=== PATIENT | female | born 1990 | race African-American/Black ===

== ENCOUNTER 2019-12-02 22:10 | Inpatient (IN) | payer MEDICAID ==
[~2019-12-02] VITALS: Ht 152.4 cm; Wt 117.5 kg
[~2019-12-02 22:10] MED LIST: advil; midol
[2019-12-02] MEDS ORDERED: METHYLERGONOVINE MALEATE 0.2 MG/ML IM PRN (23:30)
[2019-12-02] MEDS ORDERED: BUTORPHANOL TARTRATE 2 MG/ML VIAL IV PRN (23:30)
[2019-12-02] MEDS ORDERED: CARBOPROST TROMETHAMINE 250 MCG/ML AMPUL IM PRN (23:30)
[2019-12-02] MEDS ORDERED: LIDOCAINE HCL 1% 20ML VIAL (Pyxis) INJ INFIL SCH (23:30)
[2019-12-02] MEDS ORDERED: MISOPROSTOL 100MCG TABLET VG SCH (23:30)
[2019-12-02] MEDS ORDERED: NALOXONE HCL 0.4 MG/ML 1ML VIAL IM PRN (23:30)
[2019-12-03] MEDS ORDERED: AMPICILLIN 2,000 MG in SODIUM CHLORIDE 0.9% 100 ML IV SCH ×2
[2019-12-03 00:51] LABS: BASOPHILS % 0.4 % (0.0-2.0); EOSINOPHILS % 1.7 % (0.0-5.0); HEMATOCRIT. 35.1 % (36.0-48.0); HEMOGLOBIN. 12.2 g/dL (12.0-16.0); MEAN CORPUSCULAR HEMOGLOBIN 31.3 pg (28.0-32.0); MEAN CORPUSCULAR VOLUME 90.3 fL (81.0-99.0); MEAN PLATELET VOLUME 8.5 fl (7.4-10.4); MONOCYTES % 8.3 % (2.0-8.0); NEUTROPHILS % 66.6 % (40.0-76.0); PLATELET 270 x1000/uL (130-400); RED BLOOD CELL COUNT 3.89 mill/uL (4.2-5.4)
[2019-12-03 01:11] LABS: HEPATITIS B SURFACE ANTIGEN NEGATIVE
[2019-12-03] MEDS: DEXT 5%/LR + PITOCIN 20UNITS/L 1,000 ML IV SCH (01:15)
[2019-12-03 02:22] LABS: PARTIAL THROMBOPLASTIN TIME 30.7 sec (23.4-31.0); PROTHROMBIN TIME 10.1 sec (9.6-11.0)
[2019-12-03 02:23] LABS: CLARITY URINE CLEAR (CLEAR); COLOR URINE YELLOW (YELLOW); KETONES URINE 1+ (NEGATIVE); LEUKOCYTE ESTERASE URINE 3+ (NEGATIVE); NITRITE URINE NEGATIVE (NEGATIVE); OCCULT BLOOD URINE TRACE (NEGATIVE); PH URINE 6.5 (4.5-8.0); PROTEIN URINE TRACE (NEGATIVE); SPECIFIC GRAVITY URINE 1.012 (1.005-1.030)
[2019-12-03 02:44] LABS: *AMPHETAMINES SCREEN URINE NEGATIVE (NEGATIVE); *BARBITURATES SCREEN URINE NEGATIVE (NEGATIVE); *BENZODIAZEPINES SCREEN URINE NEGATIVE (NEGATIVE); *COCAINE SCREEN URINE NEGATIVE (NEGATIVE); CANNABINOID URINE SCREEN NEGATIVE (NEGATIVE); METHADONE URINE SCREEN NEGATIVE (NEGATIVE); OPIATES URINE SCREEN NEGATIVE (NEGATIVE); PHENCYCLIDINE URINE SCREEN NEGATIVE (NEGATIVE)
[2019-12-03] MEDS: LACTATED RINGERS 1,000 ML IV SCH ×3 (05:04→17:27)
[2019-12-03] MEDS: AMPICILLIN 1,000 MG in SODIUM CHLORIDE 0.9% 50 ML IV SCH (17:14)
[2019-12-04] MEDS: LACTATED RINGERS 1,000 ML IV SCH (04:00)
[2019-12-04] MEDS: AMPICILLIN 1,000 MG in SODIUM CHLORIDE 0.9% 50 ML IV SCH ×2 (07:06→12:42)
[2019-12-04] MEDS: DEXT 5%/LR + PITOCIN 20UNITS/L 1,000 ML IV SCH ×2 (08:08→21:37)
[2019-12-04] MEDS ORDERED: CITRIC ACID/SODIUM CITRATE SOLN 30ML UDC PO NR ×2 (17:45→18:30)
[2019-12-04] MEDS ORDERED: OXYTOCIN 10 UNITS/ML 1ML ONE ×2 (18:00→18:40)
[2019-12-04] MEDS ORDERED: MORPHINE SULFATE/PF 1MG/ML 10ML AMP ONE (18:27)
[2019-12-04] MEDS ORDERED: STERILE WATER FOR INJECTION 10ML VIAL ONE (18:28)
[2019-12-04] MEDS ORDERED: EPHEDRINE SULFATE 50MG/ML VIAL ONE (18:28)
[2019-12-04] MEDS ORDERED: DIPHENHYDRAMINE 50MG/ML VIAL IV PRN (18:30)
[2019-12-04] MEDS ORDERED: KETOROLAC 30MG/ML VIAL IV PRN ×2 (18:30→20:15)
[2019-12-04] MEDS ORDERED: PHENYLEPHRINE HCL 10 MG/ML 1ML (IV VIAL) IV ONE (18:39)
[2019-12-04] MEDS ORDERED: METOCLOPRAMIDE HCL 10MG/2ML VIAL ONE (19:17)
[2019-12-04] MEDS ORDERED: CEFAZOLIN 1000MG PREMIX 50 ML IV ONE (19:30)
[2019-12-04] MEDS ORDERED: IBUPROFEN 400MG TABLET PO PRN (20:15)
[2019-12-04] MEDS ORDERED: RHO(D) IMMUNE GLOBULIN 300 MCG/SYR IM PRN (20:15)
[2019-12-04] MEDS ORDERED: BISACODYL 10MG SUPP PR PRN (20:15)
[2019-12-05] VITALS: BP 113/64
[2019-12-05] MEDS ORDERED: ONDANSETRON HCL 4MG/2ML INJ IV PRN (02:00)
[2019-12-05 04:00] VITALS: BP 115/72
[2019-12-05] MEDS: DEXT 5%/LR + PITOCIN 20UNITS/L 1,000 ML IV SCH ×2 (06:07→14:24)
[2019-12-05 07:12] LABS: BASOPHILS % 0.2 % (0.0-2.0); HEMATOCRIT. 32.3 % (36.0-48.0); HEMOGLOBIN. 11.1 g/dL (12.0-16.0); LYMPHOCYTES % 7.9 % (20.0-50.0); MEAN CORPUSCULAR HEMOGLOBIN 31.1 pg (28.0-32.0); MEAN CORPUSCULAR VOLUME 90.8 fL (81.0-99.0); MEAN PLATELET VOLUME 8.2 fl (7.4-10.4); MONOCYTES % 6.2 % (2.0-8.0); NEUTROPHILS % 85.7 % (40.0-76.0); PLATELET 235 x1000/uL (130-400); RED BLOOD CELL COUNT 3.56 mill/uL (4.2-5.4); RED CELL DISTRIBUTION WIDTH 14.9 % (11.6-14.6)
[2019-12-05 07:45] VITALS: BP 109/64
[2019-12-05 15:48] VITALS: BP 105/62
[2019-12-05 19:15] VITALS: BP 108/69
[2019-12-05] MEDS: IBUPROFEN 800MG TABLET PO PRN (22:21)
[2019-12-05 23:45] VITALS: BP 110/70
[2019-12-06 04:00] VITALS: BP 112/74
[2019-12-06 08:00] VITALS: BP 95/50
[2019-12-06] MEDS: IBUPROFEN 800MG TABLET PO PRN ×2 (09:05→20:25)
[2019-12-06 16:36] VITALS: BP 116/74
[2019-12-06 20:00] VITALS: BP 113/73
[2019-12-07] VITALS: BP 119/76
[2019-12-07] MEDS: IBUPROFEN 800MG TABLET PO PRN (03:54)
[2019-12-07 04:00] VITALS: BP 115/79
[2019-12-07] MEDS ORDERED: FERR325T6 MT (07:32)
[2019-12-07] MEDS ORDERED: PNV1TABL76 MT (07:32)
[2019-12-07] MEDS ORDERED: IBUP-2030 PO (07:32)
[2019-12-07 08:30] VITALS: BP 114/60
== END 2019-12-07 15:00 | disposition home or self-care (01) | DRG 540 ==
LOC: OBSVTOIN 22:10 → 8 EST LDRP 22:10 → 8 EST A/PP 12-04 23:26
PROVIDERS: ADMIT Obstetrics & Gynecology; ATTEND Obstetrics & Gynecology
PROC: 10D00Z1 Extraction of Products of Conception, Low, Open Approach (ICD-10-PCS; principal; 2019-12-04)
DX: O62.2 Other uterine inertia (principal); O99.02 Anemia complicating childbirth; O34.13 Maternal care for benign tumor of corpus uteri, third trimester; O64.0XX0 Obstructed labor due to incomplete rotation of fetal head, not applicable or unspecified; D62 Acute posthemorrhagic anemia; O99.52 Diseases of the respiratory system complicating childbirth; J45.909 Unspecified asthma, uncomplicated; D25.2 Subserosal leiomyoma of uterus; Z37.0 Single live birth; Z3A.38 38 weeks gestation of pregnancy; Z83.3 Family history of diabetes mellitus
CPT/HCPCS: 36415; 80305; 81003; 85025; 86592; 86703; 86762; 86850; 86900; 87340; 88307; 99281; A4216; J0290; J0595; J0690; J1885; J2274; J2370; J2405; J2590; J2765; J3490; J7050

== ENCOUNTER 2019-12-12 21:23 | Emergency (ER) | payer MEDICAID ==
[~2019-12-12] VITALS: Ht 167.6 cm; Wt 120.0 kg
[~2019-12-12 21:23] MED LIST changes: +FERR325T6 MT; +IBUP-2030 PO; +PNV1TABL76 MT; -advil; -midol
[2019-12-12] MEDS ORDERED: ASPIRIN 81MG TABLET PO ONE (23:00)
[2019-12-12 23:41] LABS: BASOPHILS % 0.8 % (0.0-2.0); EOSINOPHILS % 1.2 % (0.0-5.0); HEMATOCRIT. 31.7 % (36.0-48.0); HEMOGLOBIN. 10.9 g/dL (12.0-16.0); LYMPHOCYTES % 23.3 % (20.0-50.0); MEAN CORPUSCULAR HEMOGLOBIN 30.9 pg (28.0-32.0); MEAN CORPUSCULAR VOLUME 89.9 fL (81.0-99.0); MEAN PLATELET VOLUME 7.8 fl (7.4-10.4); MONOCYTES % 7.9 % (2.0-8.0); NEUTROPHILS % 66.8 % (40.0-76.0); PLATELET 357 x1000/uL (130-400); RED BLOOD CELL COUNT 3.52 mill/uL (4.2-5.4); RED CELL DISTRIBUTION WIDTH 14.7 % (11.6-14.6)
[2019-12-12 23:48] LABS: CHLORIDE 109 mEq/L (98-107)
[2019-12-12 23:52] LABS: PARTIAL THROMBOPLASTIN TIME 32.1 sec (23.4-31.0); PROTHROMBIN TIME 10.8 sec (9.6-11.0)
[2019-12-13] MEDS ORDERED: IOHEXOL-350 100 ML BOTTLE ONE (00:48)
[2019-12-13] MEDS ORDERED: AZITHROMYCIN 500 MG TABLET PO SCH (01:15)
[2019-12-13] MEDS ORDERED: POTASSIUM CHLORIDE 20MEQ TABLET SR PO SCH (01:15)
[2019-12-13 01:41] VITALS: BP 134/80
== END 2019-12-13 01:43 | disposition home or self-care (01) ==
LOC: ER 21:23
DX: J18.9 Pneumonia, unspecified organism (principal); R60.0 Localized edema; J45.909 Unspecified asthma, uncomplicated; Z03.818 Encounter for observation for suspected exposure to other biological agents ruled out; Z98.890 Other specified postprocedural states
CPT/HCPCS: 36415; 71045; 71275; 80053; 83880; 84484; 85025; 85610; 85730; 87635; 93005; 99285; C9803; Q9967; Z7610